=== PATIENT | male | born 1965 | race Caucasian/White ===

== ENCOUNTER 2022-03-22 08:41 | Observation (INO) ==
--- NOTE | 2022-03-01 11:44 | PAT Medication Instructions ---
Medication Instructions Date of Service March 01, 2022 Home Medications acetaminophen 650 mg tablet,extended release 1,300 mg PO Q12H atorvastatin 10 mg tablet 10 mg PO HS citalopram 20 mg tablet 20 mg PO HS lisinopril 20 mg tablet 20 mg PO HS meloxicam 15 mg tablet 15 mg PO HS ASK your surgeon for instructions meloxicam 15 mg tablet 15 mg PO HS Take morning of surgery With a small sip of water, OTHERWISE NOTHING TO EAT OR DRINK AFTER MIDNIGHT: acetaminophen 650 mg tablet,extended release 1,300 mg PO Q12H(if needed) Take evening before surgery acetaminophen 650 mg tablet,extended release 1,300 mg PO Q12H(if needed) atorvastatin 10 mg tablet 10 mg PO HS citalopram 20 mg tablet 20 mg PO HS lisinopril 20 mg tablet 20 mg PO HS Other Notes If you have any questions please call us at [phone] or [phone] or [phone] or [phone]
--- NOTE | 2022-03-07 08:10 | History & Physical Report ---
Date of Service March 07, 2022 date of surgery: 03/22/22 Procedure: Bilateral Total Knee Arthroplasty, possible screw removal ACL screw from right knee Surgeon: Devin Varghese Assessment & Plan (1) Degenerative arthritis of knee, bilateral: Plan: Risks and benefits of procedure discussed in detail today, patient would like to proceed with bilateral total knee replacements at [facility] as scheduled. Will place on Xarelto x 1 month post op, f/u 2 weeks post op for routine post-operative care and x-ray, sooner if having any problems. will make arrangements for HHPT at the time of discharge. At this point in time, has failed conservative measures and would like to proceed with surgical intervention. The risks and benefits have been discussed including, but not limited to, risk of infection, nerve injury, stiffness, loss of motion, failure to improve, etc. Reasonable outcomes and options of treatment were discussed. An explanation of appropriate alternatives to the procedure that may be advantageous were discussed and their risks and benefits, as well as the risks and benefits of not proceeding with treatment. I offered to answer any additional inquiries concerning the treatment involved. All the patient's questions were answered. The patient is agreeable, understanding of the treatment plan and alternatives, and wishes to proceed with the treatment plan. History of Present Illness Chief Complaint: Bilateral knee pain Primary Care Provider: MEERA PCP Troy is a pleasant 56-year-old male presents for preop evaluation prior to bilateral knee replacements. He states he been having pain both knees for many years now which gradually worsened and is now affecting his daily activities including walking standing using stairs. He had prior right knee ACL reconstruction approximately 30 years ago as well as prior left knee arthroscopy for torn meniscus and ACL tear. Since that time he undergone viscosupplementation as well as cortisone injections without much relief. He has tried oral anti-inflammatories and Tylenol as well. This point time is failed conservative measures like to proceed with bilateral total knee replacements Allergies Allergy/AdvReac Type Severity Reaction Status Date / Time Penicillins Allergy Mild Rash Verified 02/28/22 11:56 Home Medications Medication Instructions Recorded Confirmed Type acetaminophen 650 mg 1,300 mg PO Q12H 02/28/22 02/28/22 History tablet,extended release atorvastatin 10 mg tablet 10 mg PO HS 02/28/22 02/28/22 History citalopram 20 mg tablet 20 mg PO HS 02/28/22 02/28/22 History lisinopril 20 mg tablet 20 mg PO HS 02/28/22 02/28/22 History meloxicam 15 mg tablet 15 mg PO HS 02/28/22 02/28/22 History Past Med/Surg History Medical History Anxiety History of anesthesia reaction severe vomiting with acl repair History of COVID-19 diagnosed 10/2021--mild symptoms, no symptoms now Hyperlipidemia Hypertension Osteoarthritis Sleep apnea cpap Temporomandibular joint disorder complains of clicking when eating, otherwise no other issues--no bite block Surgical History History of arthroscopy of left knee x3 History of arthroscopy of right knee x4 History of colonoscopy History of wisdom tooth extraction Family History Other No family history of adverse response to anesthesia Social History Smoking Status: Never smoker Second Hand Exposure: No; Hx Alcohol Use: Yes Alcohol type: beer Hx Substance Use: No Preferred Language: Slovak Communication Ability: Effective Marketing Area Manager Required: No Beliefs That Will Affect Care: Tenriism Tenriism Beliefs: Yarsani--last rites Current Living Situation: Spouse and Family Current Living Situation Comment: Lives with and son and daughter Feels Safe at Home: Yes Assistive Devices: CPAP and Glasses Review of Systems Review of Systems: All systems reviewed & are unremarkable except as noted in HPI & below Constitutional: no fever, no chills and no sweats Respiratory: no cough and no dyspnea Cardiovascular: no chest pain, no dyspnea and no orthopnea Gastrointestinal: no abdominal pain, no nausea and no vomiting Musculoskeletal: as per Subjective / HPI Physical Exam Constitutional: WD/WN, vitals as above no acute distress Respiratory: normal respiratory effort, lungs clear to auscultation no respiratory distress, no labored breathing and does not use accessory muscles Cardiovascular: RRR, no murmur, no edema Gastrointestinal (Abdomen): normal bowel sounds, soft, nontender, no hepatosplenomegaly Musculoskeletal: Bilateral knee Physical exam Overall patient has varus alignment bilaterally, there is no atrophy or ecchymosis noted, +1 suprapatellar effusion in both knees, positive tenderness to both medial and lateral joint lines right knee, more medial sided tenderness to the left knee. negative patellar apprehension, positive crepitation noted to both knees with active ROM. bilateral knees stable to valgus and varus stress, nathen negative, posterior drawer negative. Range of motion right knee 0/3/110, left knee 0/3/115. lower extremities are neurovascularly intact, calf soft and non tender, DP pulse +2 bilaterally. Results & Data Results & Data ([facility]) Diagnostic Findings x-ray bilateral knees: Retained ACL screw w/ tricompartment DJD of the right knee, bone on bone changes, with narrowing of the medial compartment of the PF joint with posterior and PF joint osteophytes. Subchondral sclerosis noted. No acute bony pathology noted. Tricompartment DJD of the left knee with narrowing of the medial compartment of the PF joint with osteophyte formation and subchondral sclerosis. Chondral calcinosis noted.
--- NOTE | 2022-03-07 11:04 | Anesthesiology Consultation ---
Date of Service March 07, 2022 Assessment & Plan (1) Encounter for pre-operative examination: Chart Review Chart Review: Acceptable Risk for Surgery (pending PCP clearance 03/09/22) and Patient seen in Pre Admission Testing -Awaiting PCP clearance 03/09/22 - Pt is NOT a Same Day Joint candidate due to bilateral TKA Per [facility] appt on 03/07/22, patient denies any recent travel or large group activities. Pt states he has had a cough for the past week. No previous Covid testing. Preop Covid testing done at [facility] appt 03/07/22= negative. Pt is vaccinated for Covid. Educated on importance of using Covid precautions one week prior to surgery History Surgery Operation Date: 03/22/22 08:25 Proposed Procedures p Bilateral Total Knee Arthroplasty - Devin Varghese DO Height/Weight Height: 6 ft Weight: 88.4 kg Allergies Allergy/AdvReac Type Severity Reaction Status Date / Time Penicillins Allergy Mild Rash Verified 02/28/22 11:56 Medications Home Medications Medication Instructions Recorded Confirmed Last Taken acetaminophen 650 mg 1,300 mg PO Q12H 02/28/22 02/28/22 Unknown tablet,extended release atorvastatin 10 mg tablet 10 mg PO HS 02/28/22 02/28/22 Unknown citalopram 20 mg tablet 20 mg PO HS 02/28/22 02/28/22 Unknown lisinopril 20 mg tablet 20 mg PO HS 02/28/22 02/28/22 Unknown meloxicam 15 mg tablet 15 mg PO HS 02/28/22 02/28/22 Unknown Past Medical History Medical History Anxiety History of anesthesia reaction severe vomiting with acl repair History of COVID-19 diagnosed 10/2021--mild symptoms, no symptoms now Hyperlipidemia Hypertension Osteoarthritis Sleep apnea cpap Temporomandibular joint disorder complains of clicking when eating, otherwise no other issues--no bite block Exercise / Class Metabolic Activity II 4-5 Yardwork/Stairs/Walk up hill (one flight of stairs - no chest pain or SOB ) Past Family History Family History Other No family history of adverse response to anesthesia Past Surgical History Surgical History History of arthroscopy of left knee x3 History of arthroscopy of right knee x4 History of colonoscopy History of wisdom tooth extraction Past Anesthesia History No Hx of Anesthesia Complications (with exception one time remote hx of PONV ) and No Family Hx of Anesthesia Complications History of PONV No Hx of Motion Sickness and History of PONV (remote hx of PONV - one time in - no subsquent issues ) Social History Smoking Status: Never smoker Do You Dip or Chew Tobacco: No Hx Alcohol Use: Yes Alcohol type: beer alcohol intake frequency: holidays/special occasions only Hx Substance Use: No substance use type: does not use Review of Systems Cough- over one week ago- improving Patient denies chest pain, shortness of breath, dyspnea on exertion, reflux, wheezing, palpitations. No hx of seizures, stroke, [place]. No hx of blood clots or blood transfusions Physical Exam Vital Signs VITALS BP 151/83 P 56 TEMP 98.1 SP02 98% RESP 16 Constitutional no acute distress ENMT Mouth: no TMJ clicking Thyromental Distance: > or= 3.5 Finger Breadths (3.5) Mallampati Class: III Neck neck extension not limited Respiratory normal respiratory effort; no respiratory distress Auscultation: lungs clear to auscultation bilaterally; no wheezes Cardiovascular Rate/Rhythm: regular rate and regular rhythm Heart Sounds: no murmur Vessels: no carotid bruit Musculoskeletal Spine: no pain with cervical ROM Extremities: extremities normal to inspection Psychiatric Orientation: alert Lab Results Anesthesia Preop Results Results Anesthesia Widget: PT 10.6 Seconds (9.0-12.0) 03/07/22 PTT 28.0 Seconds (21.0-31.0) 03/07/22 INR 1.0 (0.9-1.1) 03/07/22 HA1c 5.3 % (4.5-5.6) 03/07/22 Urine Color Yellow 03/07/22 Urine Appearance Clear (Clear) 03/07/22 Urine pH 6.5 (4.5-7.5) 03/07/22 Urine Specific [place] 1.008 (1.000-1.030) 03/07/22 Urine Protein Negative (Negative) 03/07/22 Urine Glucose (UA) Negative (Negative) 03/07/22 Urine Ketones Negative (Negative) 03/07/22 Urine Blood Negative (Negative) 03/07/22 Urine Nitrite Negative (Negative) 03/07/22 Urine Bilirubin Negative (Negative) 03/07/22 Urine Urobilinogen Negative (Negative) 03/07/22 Urine Leukocyte Esterase Negative (Negative) 03/07/22 Blood Type A Positive 03/07/22 Antibody Screen NEGATIVE 03/07/22 Testing Laboratory Results 02/25/22= WBC: 6.26 H/H: 15.5/46.7 PLATELETS: 198 SODIUM: 141 POTASSIUM: 4.1 CHLORIDE: 108 CO2: 28 BUN: 24.0 CREATININE: 1.00 GLUCOSE: 96 Electrocardiogram Date: 03/07/22 Findings: + SB @ (51bpm) Otherwise normal EKG per cardio. Chest X-Ray Date: 02/25/22 Findings: + NAD COVID-19 Risk Screen Screening Information COVID-19 Screen Date: 03/07/22 Exposure 21 Days Family/Household +COVID Last 21 Days: No Exposure 10 Days Any COVID Exposure Last 10 Days: No Symptoms Last 10 Days Experienced COVID Sx Last 10 Days: Yes Sx Experienced Last 10 Days: Cough Were You Tested for COVID: No + COVID 0-90 Days COVID + in Last 0-90 Days: No COVID Testing Site COVID-19 Preop/Pre-Procedure Testing Site: [facility] (03/07/22= negative) Risk Plan COVID Risk Plan: Last 10D CoV Sx COVID Risk Plan Comment: Preop Covid testing done at [facility] on 03/07/22= negative Patient Education COVID Preop Screening Education Complete: Yes
[~2022-03-22 08:41] MED LIST: ACETAMINOPHEN 500 MG TAB PO SCH; BUPIVACAINE 0.25% 30 ML VIAL ONE; BUPIVACAINE 0.5 % 5 MG/1 ML PF 10ML VIAL ONE; CeleBREX 200 MG CAP PO SCH; FAMOTIDINE 20 MG TAB PO SCH; GABAPENTIN 600 MG DOSE PO SCH; LR 500ML BOLUS, THEN 15ML/HR IV SCH; METOCLOPRAMIDE HCL 10 MG TABLET PO SCH; ROPIVACAINE 0.5% 5 MG/ML 30 ML VIAL ONE; ROPIVACAINE 0.5% HCL/PF 150 MG, BUPIVACAINE 0.75% MPF 20 ML, EPINEPHrine 30MG/30ML (OR ... INFIL SCH; TRANEXAMIC ACID 1,000 MG **IV Intra-op IV SCH; TRANEXAMIC ACID 1,000 MG **IV Pre-op IV SCH; VANCOMYCIN HCL 1,250 MG in SODIUM CHLORIDE 0.9% 250 ML IV SCH; dexAMETHasone 4 MG TAB PO SCH
[2022-03-22] MEDS ORDERED: KETAMINE 50 MG/5 ML SYRINGE ONE (08:58)
[2022-03-22] MEDS ORDERED: MIDAZOLAM HCL 1 MG/ML 2ML VIAL ONE (08:58)
--- NOTE | 2022-03-22 09:47 | History & Physical Bridge Note ---
Date of Service March 22, 2022 History & Physical Bridge Note I have examined the patient, reviewed the History & Physical and in the interval since the performance of the History & Physical I have noted the following changes of clinical significance: no changes noted
[2022-03-22] MEDS ORDERED: ePHEDrine sulfate 50 MG/ML AMP IV PRN (09:50)
[2022-03-22] MEDS ORDERED: fentaNYL citrate 100 MCG/2 ML VIAL IV PRN (09:50)
[2022-03-22] MEDS ORDERED: ONDANSETRON INJ 2 MG/ML 2 ML VIAL IV PRN ×2 (09:50→16:22)
[2022-03-22] MEDS ORDERED: ATROPINE SULFATE 0.1 MG/ML 10ML SYR IV PRN (09:50)
[2022-03-22] MEDS ORDERED: ORTHO JOINT ANESTHETIC ONE (10:27)
[2022-03-22] MEDS ORDERED: Nursing to Pharmacy Communication SCH (10:30)
[2022-03-22] MEDS ORDERED: ePHEDrine sulfate 50 MG/ML SYR ONE (11:48)
[2022-03-22] MEDS ORDERED: DEXAMETHASONE SOD INJ 4 MG/ML VIAL ONE (11:56)
[2022-03-22] MEDS ORDERED: KETOROLAC 30 MG/ML VIAL ONE (11:56)
[2022-03-22] MEDS ORDERED: LIDOCAINE 2% MPF LOCAL 5 ML VIAL INFIL ONE (11:56)
[2022-03-22] MEDS ORDERED: ONDANSETRON INJ 2 MG/ML 2 ML VIAL ONE (11:56)
[2022-03-22] MEDS ORDERED: PROPOFOL IV EMULSION 10 MG/ML 20 ML VIAL IV ONE ×4 (11:56→13:39)
--- NOTE | 2022-03-22 13:47 | Operative Report ---
Post Operative Report Pre & Post Diagnosis Operation Date: 03/22/22 10:45 Pre-Op Diagnosis: Tricompartment Osteoarthritis of Left Knee, Tricom Post-Op Diagnosis: Tricompartment Osteoarthritis of Left Knee, Tricom I identified the patient and participated in the time-out.: Yes Procedure Operation Date: 03/22/22 10:45 Actual Procedures p Bilateral Total Knee Arthroplasty(Bilateral right [employer] size 7 standard femur tibia 30 x 14 mm stem with a size F tibia 10 mm medial constrained polythirty 1 oval left Kimberli persona [employer]omet size femur 7 standard tibia F polyten medial constrained patella 31 oval) - Devin Varghese DO Surgeon Devin Varghese DO [place] Cutter Operator Ayo DOVER Estimated Blood Loss 10 Findings Consistent with Post-Op Diagnosis Severe tricompartmental DJD with retained ACL hardware right knee end-stage [id number] subchondral sclerosis marginal osteophytes moderate to large effusion bilateral knees Specimens Bone and cartilage Drains Medium bore Hemovac Anesthesia Type MAC Spinal Regional Complications none Disposition Accompanied Patient To Recovery: No Disposition: Recovery Room Indications Patient presents after failed attempted conservative management occluding physical therapy anti-inflammatories relative rest activity modification above intraoperative findings were noted Description of Procedure After proper prepping and draping of the bilateral lower extremities, an anterior midline incision was made over the region of the extensor extensor m echanism of the left knee. After meticulous hemostasis was obtained and maintained in subcutaneous tissues a medial parapatellar incision was made The patella was subluxed lateralward the medial lateral gutter were cleaned from any hypertrophic synovitis and scar tissue of the distal femoral block was placed and the distal femoral osteotomy cut was made subsequently the chamfers anterior and posterior osteotomy cuts were made utilizing the 4-in-1 block the tibia was subsequently subluxed anteriorward medial and ateral meniscal remnants were excised in their entirety remnants of the anterior and posterior cruciate ligaments were excised in their entirety excellent exposure of the proximal tibia was obtained the tibial osteotomy guide was placed on the proximal tibial osteotomy cut was made once again the knee was irrigated with copious amounts of sterile saline solution the patella was subsequently everted lateralward thickened scar tissue around the patella was removed the patella was subsequently cut utilizing a freehand technique and was drilled prepared for final preparation and placement of patella socially flexion-extension gaps were checked and the equal and symmetric trials were placed to the appropriate femoral and tibial trials with poly-spacer being placed for equal flexion and extension gaps and full range of motion including extension to 0 and flexion to 140 the trial components after having been taken to recovery range of motion was subsequently removed meticulous hemostasis was obtained and maintained subsequently a knee block injection of joint cocktail including ropivacaine 0.5% 150 mg. Bupivacaine 0.5% epinephrine 1-200,030 mL's toradol 30 mg dexamethasone 4 mg ketamine 10 mg clonidine 100 micrograms normal saline solution 30 mg was infiltrated into the soft tissues of the posterior knee medial lateral gutters and periosteal synovium special attention was paid to protect neurovascular structures at all times subsequently trial components having been removed the knee was irrigated with sterile saline solution. debris was removed the proximal tibia was subsequently prepared and was made ready for the placement of the tibial component tibial component was also cemented and tamped into position the femoral component was subsequently placed and cemented in the position the patellar component was subsequently cemented in position because hemostasis once again obtained and maintained wound having been thoroughly irrigated with debridement and debridement lavage was performed as well as a medial parapatellar incision closed with #1 Vicryl in interrupted fashion subcutaneous was closed with #2 Vicryl skin was closed with skin clips Next, an anterior midline incision was made over the region of the extensor extensor mechanism of the right knee. After meticulous hemostasis was obtained and maintained in subcutaneous tissues a medial parapatellar incision was made The patella was subluxed lateralward the medial lateral gutter were cleaned from any hypertrophic synovitis and scar tissue of the distal femoral block was placed and the distal femoral osteotomy cut was made subsequently the chamfers anterior and posterior osteotomy cuts were made utilizing the 4-in-1 block the tibia was subsequently subluxed anteriorward medial and ateral meniscal remnants were excised in their entirety remnants of the anterior and posterior cruciate ligaments were excised in their entirety excellent exposure of the proximal tibia was obtained the tibial osteotomy guide was placed on the proximal tibial osteotomy cut was made once again the knee was irrigated with copious amounts of sterile saline solution the patella was subsequently everted lateralward thickened scar tissue around the patella was removed the patella was subsequently cut utilizing a freehand technique and was drilled prepared for final preparation and placement of patella socially flexion-extension gaps were checked and the equal and symmetric trials were placed to the appropriate femoral and tibial trials with poly-spacer being placed for equal flexion and extension gaps and full range of motion including extension to 0 and flexion to 140 the trial components after having been taken to recovery range of motion was subsequently removed meticulous hemostasis was obtained and maintained subsequently a knee block injection of joint cocktail including ropivacaine 0.5% 150 mg. Bupivacaine 0.5% epinephrine 1-200,030 mL's toradol 30 mg dexamethasone 4 mg ketamine 10 mg clonidine 100 micrograms normal saline solution 30 mg was infiltrated into the soft tissues of the posterior knee medial lateral gutters and periosteal synovium special attention was paid to protect neurovascular structures at all times subsequently trial components having been removed the knee was irrigated with sterile saline solution. The tibial ACL screw was removed utilizing a [employer] screw extractor a short stem 30 mm was addedDue to the complex nature of the procedure, the entire surgery was performed with the operational assistance of [PAC Name]. The pest controller assistant, under direct supervision, was involved in the actual performance of all aspects of the surgical procedure including hemostasis, tissue retraction and incision, instrument management, patient positioning, and wound closure. debris was removed the proximal tibia was subsequently prepared and was made ready for the placement of the tibial component tibial component was also cemented and tamped into position the femoral component was subsequently placed and cemented in the position the patellar component was subsequently cemented in position because hemostasis once again obtained and maintained wound having been thoroughly irrigated with debridement and debridement lavage was performed as well as a medial parapatellar incision closed with #1 Vicryl in interrupted fashion subcutaneous was closed with #2 Vicryl skin was closed with skin clips.. Ayo Marcelino was an active participant in the case was necessary for wound closure positioning of jigs bone napoleon was an active participant in the case JAZZMINE-Kenneth was necessary for prepping and drapping as well as wound closure of deep fascia Sub cutaneous tissue and skin and was necessary for the case. A sterile compressive dressings were placed, patient was taken to recovery in stable condition of report dictated by Abimael I attest to the content of the Intraoperative Record and any orders documented therein. Any exceptions are noted below. I attest to the content of the Intraoperative Record and any orders documented therein. Any exceptions are noted below.
--- NOTE | 2022-03-22 14:49 | Anesthesiology Progress Note ---
Date of Service March 22, 2022 Anesthesia Post Procedure Vital Signs Vital Signs: Temp Pulse Pulse Resp BP Pulse Ox O2 Del Method 03/22/22 14:45 67 19 110/60 99 Room Air 03/22/22 14:35 61 19 112/61 97 Oxymask 03/22/22 14:25 97.5 F L 71 24 112/63 100 Oxymask 03/22/22 09:32 98.4 F 70 20 143/95 H 98 Room Air O2 Flow Rate 03/22/22 14:45 03/22/22 14:35 6 03/22/22 14:25 6 03/22/22 09:32 Transfer of Care Handoff Completed per policy Notes Mental Status: alert / awake / arousable and participated in evaluation Patient Amnestic to Procedure: Yes Nausea / Vomiting: adequately controlled Pain: adequately controlled Airway Patency, RR, SpO2: stable & adequate BP & HR: stable & adequate Hydration State: stable & adequate Neuraxial Anesthesia: was administered and sensory block is resolving Anesthetic Complications: no major complications apparent and Pt Satisfied with anesthetic care
--- NOTE | 2022-03-22 15:45 | XRay Report ---
XR knee RT 1 or 2V routine HISTORY: 56 years-old Male Surgical Post Op right knee total joint arthroplasty COMPARISON: CT 02/14/2022 TECHNIQUE: 2 views the right knee FINDINGS: Total joint arthroplasty with patellar resurfacing. Anterior midline skin navjot are noted along wit h expected postoperative soft tissue swelling with deep tissue air an surgical drainage catheter. IMPRESSION: Total joint arthroplasty with expected postoperative changes. ACT 112: Negative or not required by law. The above report was generated using voice recognition software. It may contain grammatical, syntax o r spelling errors. Electronically signed by: Danny Horn M.D. 03/22/2022 3:44 PM
[2022-03-22] MEDS ORDERED: HYDROmorphone INJ 0.5 MG/0.5 ML SYR IV PRN (16:22)
[2022-03-22] MEDS ORDERED: diphenhydrAMINE 50 MG/ML VIAL IV PRN (16:22)
[2022-03-22] MEDS ORDERED: VANCOMYCIN CONSULT ACTIVE PRN (16:22)
[2022-03-22] MEDS ORDERED: bisacodyL 10 MG SUPP PR PRN (16:22)
[2022-03-22] MEDS ORDERED: NALOXONE HCL 0.4 MG/1 ML VIAL/CARP IV PRN (16:22)
[2022-03-22] MEDS ORDERED: MAGNESIUM HYDROXIDE SUSP 30 ML UDC PO PRN (16:22)
[2022-03-22] MEDS: SODIUM CHLORIDE 0.9% 1000ML 1,000 ML IV SCH (17:24)
--- NOTE | 2022-03-22 18:14 | XRay Report ---
XR knee LT 1 or 2V routine HISTORY: 56 years-old Male Surgical Post Op left knee total joint arthroplasty COMPARISON: None TECHNIQUE: 2 views of the left knee FINDINGS: Total joint arthroplasty with patellar resurfacing. Anterior midline skin navjot are noted along wit h expected postoperative soft tissue swelling with deep tissue air an surgical drainage catheter. No acute fracture, alignment or unexpected opaque foreign body. IMPRESSION: Total joint arthroplasty with expected postoperative changes. ACT 112: Negative or not required by law. The above report was generated using voice recognition software. It may contain grammatical, syntax o r spelling errors. Electronically signed by: Danny Horn M.D. 03/22/2022 6:13 PM
[2022-03-22] MEDS: DOCUSATE SODIUM 100 MG CAP PO SCH (20:48)
[2022-03-22] MEDS: ACETAMINOPHEN 500 MG TAB PO SCH (20:52)
[2022-03-22] MEDS ORDERED: lisinopril 20 MG TAB PO SCH (21:00)
[2022-03-22] MEDS ORDERED: SENNA 8.6 MG TAB PO SCH (21:00)
[2022-03-22] MEDS ORDERED: CITALOPRAM 20 MG TAB PO SCH (21:00)
[2022-03-22] MEDS ORDERED: ATORVASTATIN 10 MG TAB PO SCH (21:00)
[2022-03-23] MEDS ORDERED: VANCOMYCIN HCL 1,250 MG in SODIUM CHLORIDE 0.9% 250 ML IV SCH (00:30)
[2022-03-23] MEDS: SODIUM CHLORIDE 0.9% 1000ML 1,000 ML IV SCH (04:34)
[2022-03-23 06:34] LABS: Hematocrit (blood only) 32.7 % (40.1-51.0); Hemoglobin 11.5 g/dl (14.0-18.0); Mean Corpuscular Hemoglobin 31.4 pg (25.0-34.0); Mean Corpuscular Hgb Conc 35.2 g/dL (32.0-36.0); Mean Corpuscular Volume 89.3 fL (80.0-100.0); Platelet Count 185 K/uL (130-400); RDW Standard Deviation 42.5 fL (36.4-46.3); Red Blood Count 3.66 M/uL (4.63-6.08); White Blood Count 13.38 K/ul (4.8-10.8)
[2022-03-23] MEDS: ACETAMINOPHEN 500 MG TAB PO SCH ×2 (06:55→14:02)
[2022-03-23] MEDS: KETOROLAC 30 MG/ML VIAL IV SCH ×2 (06:56→13:56)
[2022-03-23 07:05] LABS: BUN Creatinine Ratio 23.7 (10-20); Calcium 7.8 mg/dl (8.5-10.1); Creatinine Clr Calc Pharmacy 90.6 ml/min; Est GFR (African American) 100.7 ml/min; Est GFR (Non-African American) 86.9 ml/min; Potassium 4.1 mmol/L (3.5-5.1)
[2022-03-23] MEDS: DOCUSATE SODIUM 100 MG CAP PO SCH (08:21)
--- NOTE | 2022-03-23 08:33 | Orthopedic Progress Note ---
Date of Service March 23, 2022 Assessment & Plan (1) Degenerative arthritis of knee, bilateral: Plan: Postop day 1 status post bilateral total knee arthroplasty PT/OT protocols. Weightbearing as tolerated. DVT prophylaxis-Xarelto p.o. daily, SCDs, DEXTER bentley. Pain management as written. DC planning-patient is planning for home health services upon discharge. Admission and Anticipated Discharge Date Admission Date: March 22, 2022 Subjective Postop day 1 Patient sitting up in bed awake and alert. No complaints this morning. Pain is controlled. Denies shortness of breath, chest pain, lightheadedness. Multiple questions about the surgeries. Patient overall feels well. Physical Exam Physical Exam: Bilateral dressings are clean, dry, and intact. Calves are soft and nontender. Neurovascular is intact. Toes are mobile. He has good dorsiflexion and plantarflexion of both feet. Hemovac drainage is 150 cc from the right and left drains from the previous shift. Results & Data ([facility]) Vital Signs (Past 12 Hours) Vital Signs Temp Pulse Resp BP Pulse Ox O2 Del Method 03/23/22 07:47 36.7 C 67 16 113/58 L 96 Room Air 03/23/22 02:59 36.7 C 67 16 115/62 96 Room Air 03/22/22 22:45 36.6 C 76 16 110/62 96 Room Air Laboratory Results Laboratory Results WBC 13.38 K/ul (4.8-10.8) H 03/23/22 05:59 RBC 3.66 M/uL (4.63-6.08) L 03/23/22 05:59 Hgb 11.5 g/dl (14.0-18.0) L 03/23/22 05:59 Hct 32.7 % (40.1-51.0) L 03/23/22 05:59 MCV 89.3 fL (80.0-100.0) 03/23/22 05:59 MCH 31.4 pg (25.0-34.0) 03/23/22 05:59 MCHC 35.2 g/dL (32.0-36.0) 03/23/22 05:59 RDW Std Deviation 42.5 fL (36.4-46.3) 03/23/22 05:59 RDW Coeff of Letty 13.0 % (11.5-14.5) 03/23/22 05:59 Plt Count 185 K/uL (130-400) 03/23/22 05:59 MPV 10.0 fL (9.4-12.4) 03/23/22 05:59 Sodium 137 mmol/L (136-145) 03/23/22 05:59 Potassium 4.1 mmol/L (3.5-5.1) 03/23/22 05:59 Chloride 108 mmol/L (98-107) H 03/23/22 05:59 Carbon Dioxide 23 mmol/L (21-32) 03/23/22 05:59 Anion Gap 6 (3-11) 03/23/22 05:59 BUN 23 mg/dl (6-23) 03/23/22 05:59 Creatinine 0.97 mg/dl (0.6-1.4) 03/23/22 05:59 Est Cr Clr Drug Dosing 90.6 ml/min 03/23/22 05:59 Est GFR ( Amer) 100.7 ml/min 03/23/22 05:59 Est GFR (Non-Af Amer) 86.9 ml/min 03/23/22 05:59 BUN/Creatinine Ratio 23.7 (10-20) H 03/23/22 05:59 Glucose 125 mg/dl (70-99(Fasting)) H 03/23/22 05:59 Calcium 7.8 mg/dl (8.5-10.1) L 03/23/22 05:59 SARS-CoV-2, RNA, NAAT NEGATIVE (NEGATIVE) 03/22/22 09:25 Impressions Knee X-Ray 03/22/22 14:35 XR knee LT 1 or 2V routine HISTORY: 56 years-old Male Surgical Post Op left knee total joint arthroplasty COMPARISON: None TECHNIQUE: 2 views of the left knee FINDINGS: Total joint arthroplasty with patellar resurfacing. Anterior midline skin najvot are noted along with expected postoperative soft tissue swelling with deep tissue air an surgical drainage catheter. No acute fracture, alignment or unexpected opaque foreign body. IMPRESSION: Total joint arthroplasty with expected postoperative changes. ACT 112: Negative or not required by law. The above report was generated using voice recognition software. It may contain grammatical, syntax or spelling errors. Electronically signed by: Danny Horn M.D. 03/22/2022 6:13 PM
[2022-03-23] MEDS ORDERED: RIVAROXABAN 10 MG TABLET PO SCH (09:00)
[2022-03-23] MEDS ORDERED: MULTIVITAMIN TAB PO SCH (09:00)
[2022-03-23] MEDS: oxyCODONE HCL IR 5 MG TAB (IMMEDIATE RELEASE) PO PRN ×2 (09:12→14:05)
--- NOTE | 2022-03-25 09:33 | Discharge Summary ---
Date of Service March 25, 2022 Admission HPI Per Admitting Provider Yvonne is a pleasant 56-year-old male presents for preop evaluation prior to bilateral knee replacements. He states he been having pain both knees for many years now which gradually worsened and is now affecting his daily activities including walking standing using stairs. He had prior right knee ACL reconstruction approximately 30 years ago as well as prior left knee arthroscopy for torn meniscus and ACL tear. Since that time he undergone viscosupplementation as well as cortisone injections without much relief. He has tried oral anti-inflammatories and Tylenol as well. This point time is failed conservative measures like to proceed with bilateral total knee replacements Admission Exam Per Admitting Provider Physical Exam Constitutional: WD/WN, vitals as above no acute distress Respiratory: normal respiratory effort, lungs clear to auscultation no respiratory distress, no labored breathing and does not use accessory muscles Cardiovascular: RRR, no murmur, no edema Gastrointestinal (Abdomen): normal bowel sounds, soft, nontender, no hepatosplenomegaly Musculoskeletal: Bilateral knee Physical exam Overall patient has varus alignment bilaterally, there is no atrophy or ecchymosis noted, +1 suprapatellar effusion in both knees, positive tenderness to both medial and lateral joint lines right knee, more medial sided tenderness to the left knee. negative patellar apprehension, positive crepitation noted to both knees with active ROM. bilateral knees stable to valgus and varus stress, nathen negative, posterior drawer negative. Range of motion right knee 0/3/110, left knee 0/3/115. lower extremities are neurovascularly intact, calf soft and non tender, DP pulse +2 bilaterally. Principal Diagnosis Bilateral Knee Osteoarthritis Discharge Data Allergies Allergy/AdvReac Type Severity Reaction Status Date / Time Penicillins Allergy Mild Rash Verified 03/22/22 09:28 Procedures Performed Operation Date: 03/22/22 10:45 Actual Procedures p Bilateral Total Knee Arthroplasty(Bilateral) - Devin Varghese DO Ordered Studies 03/22/22 05:00 US - OR guided needle placemen Routine Hospital Course (1) Degenerative arthritis of knee, bilateral: Patient:YVONNE LANDEROS Admit Date:03/22/22 MR#:[id number] Att Phy:Devin Varghese,D.ONatty Acct ID:[id number] Nataly Phy:Florencio New, Date:1965 Fam Phy: Age:56 Location:3E Sex:M Room/Bed:[facility] cc: ~ *NOTICE TO RECEIVING DEMOCRAT/AGENCY This information is strictly Confidential and protected under [place] law. [place] law prohibits you from making any further disclosure of this information unless further disclosure is expressly permitted by the written consent of the person to whom it pertains or is authorized by law. A general authorization for the release of medical or other information is not sufficient for this purpose. Hospital accepts no responsibility if the information is made available to any other person, INCLUDING THE PATIENT. ADDENDUM 03/23/22ddendum March 23, 2022 13:20 Patient progressing remarkably well with his physical therapy. Pain control remains good. Plan for discharge to home today with home health services. Addendum Signed By: <Electronically signed by Ayo Marcelino PA-C> 03/23/221320 Addendum Cosigned By: Created: 03/23/22 Date of Service March 23, 2022 Assessment & Plan (1) Degenerative arthritis of knee, bilateral: Plan: Postop day 1 status post bilateral total knee arthroplasty PT/OT protocols. Weightbearing as tolerated. DVT prophylaxis-Xarelto p.o. daily, SCDs, DEXTER bentley. Pain management as written. DC planning-patient is planning for home health services upon discharge. Admission and Anticipated Discharge Date Admission Date: March 22, 2022 Subjective Postop day 1 Patient sitting up in bed awake and alert. No complaints this morning. Pain is controlled. Denies shortness of breath, chest pain, lightheadedness. Multiple questions about the surgeries. Patient overall feels well. Physical Exam Physical Exam: Bilateral dressings are clean, dry, and intact. Calves are soft and nontender. Neurovascular is intact. Toes are mobile. He has good dorsiflexion and plantarflexion of both feet. Hemovac drainage is 150 cc from the right and left drains from the previous shift. Results & Data ([facility]) Vital Signs (Past 12 Hours) Vital Signs Temp Pulse Resp BP Pulse Ox O2 Del Method 03/23/22 07:47 36.7 C 67 16 113/58 L 96 Room Air 03/23/22 02:59 36.7 C 67 16 115/62 96 Room Air 03/22/22 22:45 36.6 C 76 16 110/62 96 Room Air Laboratory Results Laboratory Results WBC 13.38 K/ul (4.8-10.8) H 03/23/22 05:59 RBC 3.66 M/uL (4.63-6.08) L 03/23/22 05:59 Hgb 11.5 g/dl (14.0-18.0) L 03/23/22 05:59 Hct 32.7 % (40.1-51.0) L 03/23/22 05:59 MCV 89.3 fL (80.0-100.0) 03/23/22 05:59 MCH 31.4 pg (25.0-34.0) 03/23/22 05:59 MCHC 35.2 g/dL (32.0-36.0) 03/23/22 05:59 RDW Std Deviation 42.5 fL (36.4-46.3) 03/23/22 05:59 RDW Coeff of Letty 13.0 % (11.5-14.5) 03/23/22 05:59 Plt Count 185 K/uL (130-400) 03/23/22 05:59 MPV 10.0 fL (9.4-12.4) 03/23/22 05:59 Sodium 137 mmol/L (136-145) 03/23/22 05:59 Potassium 4.1 mmol/L (3.5-5.1) 03/23/22 05:59 Chloride 108 mmol/L (98-107) H 03/23/22 05:59 Carbon Dioxide 23 mmol/L (21-32) 03/23/22 05:59 Anion Gap 6 (3-11) 03/23/22 05:59 BUN 23 mg/dl (6-23) 03/23/22 05:59 Creatinine 0.97 mg/dl (0.6-1.4) 03/23/22 05:59 Est Cr Clr Drug Dosing 90.6 ml/min 03/23/22 05:59 Est GFR ( Amer) 100.7 ml/min 03/23/22 05:59 Est GFR (Non-Af Amer) 86.9 ml/min 03/23/22 05:59 BUN/Creatinine Ratio 23.7 (10-20) H 03/23/22 05:59 Glucose 125 mg/dl (70-99(Fasting)) H 03/23/22 05:59 Calcium 7.8 mg/dl (8.5-10.1) L 03/23/22 05:59 SARS-CoV-2, RNA, NAAT NEGATIVE (NEGATIVE) 03/22/22 09:25 Impressions Knee X-Ray 03/22/22 14:35 XR knee LT 1 or 2V routine HISTORY: 56 years-old Male Surgical Post Op left knee total joint arthroplasty COMPARISON: None TECHNIQUE: 2 views of the left knee FINDINGS: Total joint arthroplasty with patellar resurfacing. Anterior midline skin navjot are noted along with expected postoperative soft tissue swelling with deep tissue air an surgical drainage catheter. No acute fracture, alignment or unexpected opaque foreign body. IMPRESSION: Total joint arthroplasty with expected postoperative changes. ACT 112: Negative or not required by law. The above report was generated using voice recognition software. It may contain grammatical, syntax or spelling errors. Electronically signed by: Danny Horn M.D. 03/22/2022 6:13 PM Signed By: <Electronically signed by Ayo Marcelino PA-C> 03/23/22 0833 <Electronically signed by Bal Aaron MD> 03/23/22 1257 Created:03/23/22 0831 Total Time Total Time Spent Total Time Spent (In Minutes): 5 Discharge Plan Discharge Items Patient Disposition: Home - Home Health Services Reason For Visit: Tricompartment Osteoarthritis of Left Knee, Tricom Discharge Diagnosis: Bilateral Knee Djd Activity: Per Instructions section Weightbearing: Full weightbearing Weightbearing Comment: As tolerated with walker Non-emergency contact: Surgeon Call non-emergency contact if: you have any medication questions, your pain is not controlled, your temperature is above 101.5, your wound has increased redness and your wound has increased drainage Follow-up/Referrals: Devin Varghese DO [Surgeon] - (Follow up with Dr Varghese or his PA in 2 weeks from the day of your surgery for your first post operative visit. ) Florencio New DO [Primary Care Provider] - Diet: Regular Addtl Attending Provider Instructions: HOME HEALTH TO REMOVE KAPIL WRAP AND COTTON ROLL 03/24/22; REMOVE HEMOVAC DRAINS ON 03/24/22. MAINTAIN ROSAURA DRESSINGS. ELIQUIS (APIXABAN) - THIS IS YOUR MEDICATION FOR PROPHYLAXIS AGAINST BLOOD CLOTS (DVT). BEGIN TAKING THIS MEDICATION TOMORROW MORNING, 03/24/22. YOU WILL BE TAKING IT TWICE A DAY (EVERY 12 HOURS). ACTIVITY RECOMMENDATIONS: SELF CARE INSTRUCTIONS AFTER TOTAL KNEE REPLACEMENT A. You may need to continue a physical therapy program after discharge from the hospital. There are several options available to you. Your doctor will assist you in selecting the best one for you. 1. An out-patient facility 2 to 3 times a week for therapy or home therapy. 2. Continue working on all exercises taught to you in the hospital. Your goals should be to increase bending of your knee to 90 degrees and beyond and to fully straighten your knee. B. You may progress at your own pace from walking with a walker or crutches to a cane; then to no assistive devices. C. Make walking a part of your daily routine. Be up as much as comfortable with rest periods throughout the day. Rest with leg elevation is very important. Use the ice wrap frequently for the first 3-4 weeks. D. There are no restrictions on activities. You may ride in a car, shop, participate in devil dog and all social activities. E. Wear the long elastic stockings (DEXTER hose) 20 hours a day for 2 weeks after surgery. They can be removed several times a day for laundering and for a bath. F. You may shower, no tub baths until cleared by your doctor. SPECIAL CARE INSTRUCTIONS: VERY IMPORTANT TO READ AND REVIEW A. There are a few signs you need to watch for after you are home. Call [facility] if you notice any of the followin. Increased severe knee pain. Some pain is expected especially when you exercise. 2. Increased swelling in your leg or knee; pain or swelling of the calf muscle in either lower leg. 3. Any fluid drainage from the incision. 4. Shortness of breath or chest pain. B. Please call [facility] at if you have any concerns or questions about your operation or recovery. The doctor or his nurse will return your call promptly. C. You must take antibiotics before dental work, bladder, bowel or other surgery. Your doctor will provide you with a permanent care to carry describing this precaution. IMPORTANT: * REMEMBER TO TAKE ELIQUIS 2.5MG PO TWICE DAILY FOR 4 WEEKS UNLESS OTHERWISE DIRECTED. THIS IS YOUR BLOOD THINNER.. * CALL IF INCREASED PAIN, REDNESS, DRAINAGE OR FEVER GREATER THAT 101. * WEAR DEXTER HOSE 20 HOURS PER DAY FOR 2 WEEKS. * ROSAURA Dressing - This is a large suction dressing covering your incision. This will help pull any excess drainage from the wound and allow your incision to heal properly. You may shower with this if you can keep the unit outside of the shower. If any bleeding or leakage is noted please call your doctor's office. This will remain on your incision for 7 days and then should be removed. This can be done yourself or by the home nursing staff if applicable. The entire unit is disposable once removed. Once removed, keep incision clean and dry. If redness or drainage is noted, please call your surgeon. . FOLLOW UP VISIT: If appointment is not already scheduled: Please call [facility] to make a follow-up appointment for 2 weeks after your surgery at . Stand-Alone Forms: My [facility] Medications and DC Order Prescriptions: New acetaminophen [Tylenol Extra Strength] 500 mg Tablet 1,000 mg PO Q8 14 Days Qty: 84 0RF polyethylene glycol 3350 [Miralax] 17 gram powder in packet 17 g PO DAILY PRN (Reason: constipation) Qty: 5 0RF oxycodone 5 mg tablet 5 - 10 mg PO Q4H PRN (Reason: pain) Qty: 30 0RF doxycycline hyclate 100 mg capsule 100 mg PO BID 14 Days Qty: 28 1RF Eliquis 2.5 mg tablet 2.5 mg PO Q12H 30 Days Qty: 60 0RF Continued atorvastatin 10 mg Tablet 10 mg PO HS lisinopril 20 mg Tablet 20 mg PO HS citalopram 20 mg Tablet 20 mg PO HS Discontinued meloxicam 15 mg Tablet 15 mg PO HS acetaminophen [Tylenol Arthritis] 650 mg Tablet Extended Release 1,300 mg PO Q12H Discharge Orders: Discharge Order (Routine); Ordered 03/23/22 Ordered By: Ayo Marcelino Admission Data Admit Date/Time: 03/22/22 14:35 Attending Provider: Devin Varghese Admit Provider: Devin Varghese Primary Care Provider: Florencio New. Other Providers: Melinda Carter Other Interventions: Discharge Summary Assessment (RN) Last Done: 03/23/22 13:20
== END 2022-03-23 14:45 | disposition home health service (06) ==
LOC: 3E 08:41 → ASU 08:41